=== PATIENT | female | born 1995 | race Caucasian/White ===

== ENCOUNTER 2025-05-10 19:29 | Emergency (ER) | payer OTHER, SELFPAY ==
[2025-05-10 19:34] VITALS: BP 131/83; PULSE 102; RESP 14; TEMP 36.6; O2SAT 99
--- OUTSIDE RECORDS SUMMARY | 2025-05-10 19:34 | XMS_ITS | Patient Health Record ---
Author Organization [facility] Address [address] [place] [address] Care Team Providers Care Cover Creaser Name Role Phone Kyawcindy Rosy Primary Care Provider Cam Foreman [phone] Allergies Allergen (clinical drug ingredient) Drug/Non Drug Allergy documented on EMR Reaction Allergy Type Onset Date Status Rocephin Unknown Drug Allergy Active Results Component Value Reference Range Notes 12 Panel Urine Drug Screen Reviewed date:05/23/2024 10:09:36 AM Interpretation: Performing Lab: Notes/Report: THC POS MARILU POS MOP (OPI) neg AMP POS MET POS BAR neg BZO POS MDMA POS MTD neg OXY neg PCP neg BUP POS 12 Panel Urine Drug Screen Reviewed date:05/16/2024 10:53:02 AM Interpretation: Performing Lab: Notes/Report: THC POS MARILU POS MOP (OPI) neg AMP POS MET POS BAR neg BZO POS MDMA POS MTD neg OXY neg PCP neg BUP POS Reason For Referral No Information Medications Medication SIG (Take, Route, Frequency, Duration) Notes Start Date End Date Status Buprenorphine HCl-Naloxone HCl 8-2 MG 1 film under the tongue and allow to dissolve Sublingual three times per day 05/23/2024 Active Immunizations Vaccine Route Administration Date Status Comme nts FLU VAC NO PRSV 4VAL 6 mo+ IM Intramuscular 05/17/2019 Administered pt tolerated we ll. Social History Tobacco Use: Social History Observation Description Date Details (start date - stop date) Current Smoker NA - NA Sex Assigned At : Social History Observation Description Sex Assigned At Female Tobacco Control (Standard) Question Answer Notes Tobacco use: Current smoker Section Notes: Problems Problem Type SNOMED Code ICD Code Onset Dates Problem Status W/U Status Risk Notes Problem Insomnia (386913797) Insomnia (G47.00) Active confirmed Problem Generalized anxiety disorder (15596985) TONI (generalized anxiety disorder) (F41.1) Active confirmed Problem Overweight (510525008) Overweight (BMI 25.0-29.9) (E66.3) Active confirmed Problem Hepatitis C antibody detected (finding) (309000645) Hepatitis C antibody positive in blood (R76.8) Active confirmed Problem Tobacco use (478955331) Tobacco use disorder (F17.200) Active confirmed Problem Opioid dependence (99037230) Opioid use disorder, severe, dependence (F11.20) Active confirmed Problem Opioid use disorder (7027748989) Opioid use disorder (F11.99) Active confirmed Vital Signs Heart Rate 82 /min 05/23/2024 Temperature 98.2 degrees Fahrenheit 05/23/2024 Respiratory Rate 16 /min 05/23/2024 Blood pressure diastolic 76 mm Hg 05/23/2024 Oximetry 98 % 05/23/2024 Height 63 in 05/23/2024 Blood pressure systolic 120 mm Hg 05/23/2024 Weight 149.4 lbs 05/23/2024 BMI 26.46 kg/m2 05/23/2024 Encounters Encounter Location Date Provider Diagnosis [address] [address] 05/16/2024 Jenia Heavens Opioid use disorder F11.99 ; Overweight (BMI 25.0-29.9) E66.3 and Tobacco use disorder F17.[address] [address] 05/23/2024 Jenia Heavens Opioid use disorder F11.99 ; Opioid use disorder F11.99 ; Overweight (BMI 25.0-29.9) E66.3 and Tobacco use disorder F17.200 Assessments Encounter Date Diagnosis (ICD Code) Assessment Notes Treatment Notes Treatment Clinical Notes Section Notes 05/16/2024 Overweight (BMI 25.0-29.9) (ICD-10 - E66.3) 05/16/2024 Opioid use disorder (ICD-10 - F11.99) 05/23/2024 Overweight (BMI 25.0-29.9) (ICD-10 - E66.3) 05/23/2024 Opioid use disorder (ICD-10 - F11.99) 05/23/2024 Opioid use disorder (ICD-10 - F11.99) 05/23/2024 Tobacco use disorder (ICD-10 - F17.200) 05/16/2024 Tobacco use disorder (ICD-10 - F17.200) 05/16/2024 Other Discussed medication side effects, adverse effects, risks, benefits, as well as interactions. Encouraged non-use of opioids. Has naloxone. Recommended participation in recovery groups/counseling services. Agrees to contact office with questions or concerns. 05/23/2024 Other Patient agrees to take medication as prescribed. Discussed medication side effects, adverse effects, risks, benefits, as well as interactions. Encouraged non-use of opioids. Has naloxone. Recommended participation in recovery groups and/or counseling services. May contact office with questions or concerns. Plan Of Treatment No Information Insurance Providers Payer Name Payer Address Payer Phone Subscriber Number Group Number Insured Name Patient Relationship to Insured Coverage Start Date Coverage End Date [employer] [address] [place] [address] [id number] Jason Bowser Self - patient is the insured 1 [facility] Att Claims Department [address] [place] [address] [id number] Jason Bowser Self - patient is the insured 9 0 [employer] [address] [place] [address] [id number] Natali Bowserjimmy Self - patient is the insured 0 0 [employer] [facility] [address] [place] [address] [id number] Jason Bowser Self - patient is the insured 1 Medications Administered Medication Instructions Date of Administration Dosage Notes Vivitrol 06/02/2019 380 mg pt tolerated w ell and nurse instructed pt to massage area over next couple of days and pt voiced understanding. Vivitrol 07/05/2019 380 mg Nuclear Medicine Officer A lkermes. Pt tolerated well. Voiced no questions or concerns at present time. Vivitrol 08/03/2019 380 mg Nuclear Medicine Officer: Alkermes Tolerated well, Instructed to massage site over next couple days to prevent knot. verbalized understanding. Vivitrol 08/31/2019 380 mg Nuclear Medicine Officer A lkermes Pt tolerated procedure well. No questions or concerns voiced. Vivitrol 09/25/2020 380 mg Nuclear Medicine Officer A lkermes. Pt tolerated well. Voiced no questions or concerns at present time. Medical (General) History Medical History History ICD Code Opioid Use Disorder Substance Use Disorder (meth) Surgical History Surgery Date(Month/Year) Denies Hospitalization History Reason Date(Month/Year) Detox 04/2024 Cellulitis
--- OUTSIDE RECORDS SUMMARY | 2025-05-10 19:34 | XMS_ITS | Clinical Summary ---
Author Organization [facility] Address [address], [address] [address] Phone Care Team Providers Care Barbecue Cook Name Role Phone Jose Alejandro Cox MD Primary Care Provider [phone] Stephen Marques MD Unavailable [phone] Allergies Active Allergy Reactions Criticality Noted Date Comments Ceftriaxone Sodium In Dextrose Hives 05/13 Medications mirtazapine (REMERON) 15 MG Tablet Take 15 mg by mouth daily. 5 Active lidocaine (XYLOCAINE) 2 % Gel 3 times daily. 0 5 Active ibuprofen (MOTRIN) 600 MG Tablet Take 600 mg by mouth every 6 hours as needed. 5 Active Etonogestrel (IMPLANON SC) by Subcutaneous route. Active Ondansetron HCl (ZOFRAN PO) Take 1 Tab by mouth as needed. Active lamoTRIgine (LAMICTAL) 25 MG Tablet Take 25 mg by mouth daily. Active polyethylene glycol (GLYCOLAX, MIRALAX) Pack Take 1 Packet by mouth daily. Dissolve in 4-8 oz of liquid. 90 Packet 3 5 Active other 1 Inch by Other route 2 times daily. 100 mL 1 5 Active Active Problems No known active problems Family History Medical History Relation Name Comments Cancer Maternal Grandfather prostat e Emphysema Maternal Grandfather Cancer Maternal Grandmother breast Diabetes Maternal Grandmother Heart Attack Maternal Grandmother Hypertension Maternal Grandmother Stroke Maternal Grandmother Diabetes Paternal Grandfather Relation Name Status Comments Maternal Grandfather Maternal Grandmother Paternal Grandfather Social History Tobacco Use Types Packs/Day Years Used Date Smoking Tobacco: Every Day Cigarettes 0.5 3 Smokeless Tobacco: Never Tobacco Cessation:Ready to Q uit: No; Counseling Given: Yes Alcohol Use Standard Drinks/Week Comments No 0 (1 standard drink = 0.6 oz pur e alcohol) Comments No Sex and Gender Information Value Date Recorded Sex Assigned at Not on file Legal Sex Female 9:58 PM CDT Gender Identity Not on file Sexual Orientation Not on file Last Filed Vital Signs Vital Sign Reading Time Taken Comments Blood Pressure 120/76 05/15/2015 11:05 AM SUPERVISOR MOLD CONSTRUCTION Pulse 84 05/15/2015 11:05 AM SUPERVISOR MOLD CONSTRUCTION Temperature 37.4 C (99.3 F) 05/15/2015 11:05 AM SUPERVISOR MOLD CONSTRUCTION Respiratory Rate - - Oxygen Saturation - - Inhaled Oxygen Concentration - - Weight 53.3 kg (117 lb 6.4 oz) 05/15/2015 11:05 AM SUPERVISOR MOLD CONSTRUCTION Height 162.6 cm (5' 4) 05/15/2015 11:05 AM SUPERVISOR MOLD CONSTRUCTION Body Mass Index 20.15 05/15/2015 11:05 AM SUPERVISOR MOLD CONSTRUCTION Plan of Treatment Health Maintenance Due Date Last Done Comments Hepatitis C Virus (HCV) Screening 1996 TdaP Immunization 1996 Hepatitis B Immunization (1 of 3 - 19+ 3-dose series) 01/10/2015 Human Papillomavirus (HPV) Immunization (1 - 3-dose SCDM series) 01/10/2023 Influenza Immunization (#1) 2025 SARS-COV-2 Immunization ( - 2023- season) 2025 Respiratory Syncytial Virus (RSV) Immunization (Adult) (1 - 1-dose 75+ series) 01/10/2071 Meningococcal Immunization (ACWY) Aged Out No longer eligible based on patient's age to complete this topic Pneumococcal Immunization Combined Aged Out No longer eligible based on patient's age to complete this topic Rotavirus Immunization Aged Out No lo nger eligible based on patient's age to complete this topic Insurance MEDICAID [employer] Care Teams Barbecue Cook Relationship Specialty Start Date End Date Jose Alejandro Cox MD [address] [place] [address] PCP - General Pediatrics 05/15/15 Stephen Marques MD [address] [place] [address] General Surgery 05/30/15
--- OUTSIDE RECORDS SUMMARY | 2025-05-10 19:34 | XMS_ITS | Encounter Summary ---
Author Organization [facility] Address [address] [place] [address] Care Team Providers Care Tubing Assembler Name Role Phone Jose Alejandro Cox MD Primary Care Provider [phone] Encounter Details Date Type Department Care Team (Late st Contact Info) Description 08/04/2013 Telephone [facility]aternal [facility] Care [address] [place] [address] Laureen Lagunas, [facility] [place] [address] [place] [phone] Social History Tobacco Use Types Packs/Day Years Used Date Smoking Tobacco: Every Day Cigarettes Alcohol Use Standard Drinks/Week Comments No 0 (1 standard drink = 0.6 oz pur e alcohol) Comments Yes Sex and Gender Information Value Date Recorded Sex Assigned at Not on file Legal Sex Female 6:57 AM ASSISTANT PROFESSOR OF HISTORY Gender Identity Not on file Sexual Orientation Not on file documented as of this encounter Plan of Treatment Not on file documented as of this encounter Visit Diagnoses Not on filedocumented in this encounter Care Teams Tubing Assembler Relationship Specialty Start Date End Date Jose Alejandro Cox MD [address] [address] PCP - General Pediatrics 06/27/14 documented as of this encounter
--- NOTE | 2025-05-10 19:42 | ED.EAR ---
HPI - Ear Problem General Chief complaint: Ear Stated complaint: Ear infection Time Seen by Provider: 05/10/25 19:42 Source: patient, RN notes reviewed and old records reviewed Mode of arrival: ambulatory Limitations: no limitations History of Present Illness HPI Narrative: 30-year-old female who presents to [facility] care with complaints of pain to her left ear for the past 2 weeks. Patient has recently been on an antibiotic for a bad tooth and an ear infection. Patient reports that tooth is better but the ear is still painful. Patient reports no known fevers, chills or sweats adis any noted drainage from her left ear. MD Complaint: ear pain Location: left ear Severity: moderate Discharge from ear: Reports no Treatment prior to arrival: other (recently completed) Related Data Allergies Allergy/AdvReac Type Severity Reaction Status Date / Time ceftriaxone (From Rocephin) Allergy Intermediate Hives Verified 05/10/25 19:36 Review of Systems Review of Systems: CONSTITUTIONAL: Denies malaise, chills, sweats, or fever. EYES: Denies visual changes, redness, or discharge. ENT: Reports rhinorrhea, congestion,no sinus pain,+ left otalgia and no sore throat. CARDIOVASCULAR: Denies chest pain, palpitations, or edema. RESPIRATORY: Reports no cough.? Denies dyspnea. GASTROINTESTINAL: Denies abdominal pain, nausea, vomiting, diarrhea SKIN: Denies rash or itching. MUSCULOSKELETAL: Denies myalgia. NEUROLOGIC: Denies headache. All systems reviewed & are unremarkable except as noted in HPI and below PMFSH Past Medical History Medical History (Updated 05/11/25 @ 16:35 by Elsa Grewal APRN) Urinary tract infection History of dental problems Social History Social History (Updated 05/11/25 @ 16:29 by Elsa Grewal APRN) Gender identity (if verbalized by the patient): Female Comments At time of signature, agree with nursing past medical, surgical, social and family history. There is no relevant family history pertinent to the presenting complaint Exam Narrative: GENERAL: Well-appearing, well-nourished, and in no acute distress. HEAD: Normocephalic EYES: PERRLA, conjunctivae clear ENT: Nares clear, turbinates edematous and erythematous, clear discharge. Mucous membranes moist.Left TM red and bulging with excoriation of left ear canal noted, Right TM pearly mike with dull light reflex ; no tragal tenderness. Oropharynx erythematous without lesions. Tonsils not enlarged and without exudate, no drooling, no hoarseness, no trismus, uvula midline. NECK: Supple. No lymphadenopathy CHEST: Clear to auscultation, breath sounds equal. No wheezing, rhonchi, rales, or stridor. No respiratory distress, speaks in full sentences. no acute cough noted SAO2 99% on room air HEART: Regular rate and rhythm. No murmur heard. SKIN: Warm, dry, no rash. NEURO: Alert and oriented x3. PSYCH: Normal mood and affect Course Course Emergency Course: Patient is aware of diagnosis, understands and agrees to treatment plan.? Anticipatory guidance given.? Patient agrees to follow-up as directed and is aware of reasons to seek care at the emergency department. Portions of this record may have been created with voice recognition software Level of Care: Express Care Visit Vital Signs Vital signs: Vital Signs Temperature 36.6 C 05/10/25 19:34 Pulse Rate 102 H 05/10/25 19:34 Respiratory Rate 14 05/10/25 19:34 Blood Pressure 131/83 05/10/25 19:34 Pulse Oximetry 99 05/10/25 19:34 Oxygen Delivery Room Air 05/10/25 19:34 Temperature 36.6 C 05/10/25 19:34 Pulse Rate 102 H 05/10/25 19:34 Respiratory Rate 14 05/10/25 19:34 Blood Pressure 131/83 05/10/25 19:34 Pulse Oximetry 99 05/10/25 19:34 Oxygen Delivery Room Air 05/10/25 19:34 Reviewed Medical Decision Making Differential Diagnosis Differential Diagnosis: otitis media, otitis externa, URI, viral infection Medical Records Medical records reviewed: Yes I reviewed the external patient's medical records. Vital Signs Vital Signs: Vital Signs Temperature 36.6 C 05/10/25 19:34 Pulse Rate 102 H 05/10/25 19:34 Respiratory Rate 14 05/10/25 19:34 Blood Pressure 131/83 05/10/25 19:34 Pulse Oximetry 99 05/10/25 19:34 Oxygen Delivery Room Air 05/10/25 19:34 Temperature 36.6 C 05/10/25 19:34 Pulse Rate 102 H 05/10/25 19:34 Respiratory Rate 14 05/10/25 19:34 Blood Pressure 131/83 05/10/25 19:34 Pulse Oximetry 99 05/10/25 19:34 Oxygen Delivery Room Air 05/10/25 19:34 reviewed Critical Care Time Critical Care Time Critical Care Time: No Discharge Plan Discharge Clinical Impression: Otitis externa Qualifiers: Otitis externa type: diffuse Chronicity: acute Laterality: left Qualified Code(s): H60.312 - Diffuse otitis externa, left ear Otitis media Qualifiers: Otitis media type: serous Chronicity: acute Laterality: left Recurrence: non-recurrent Qualified Code(s): H65.02 - Acute serous otitis media, left ear Patient Disposition: Home Condition: Stable Instructions: Antibiotic Form Additional Instructions: Increase fluids especially juices and water Anvz-aql-jgjyuet cough and cold medicine of your choice for your symptoms Zyrtec Claritin or Macrina daily Tylenol or ibuprofen for any fever pain for package instructions heat to the face 20-30 minutes 4-6 times a day for pain Salt water gargles, throat lozenges or throat sprays as desired Antibiotic as directed--finished the medication antibiotic ear drops to left ear as ordered If your symptoms persist, change or worsen significantly before you can contact your personal physician then please, without delay, go to the emergency department for further evaluation. Follow-up with PCP in 7-10 days or sooner if needed Follow up with PCP soon in regards to your blood pressure which is elevated above threshold for referral. Blood pressure above 120/80 may indicate pre-hypertension. 131/83 Patient Language: Serbian Prescriptions: New cefdinir 300 mg capsule 300 mg PO Q12H Qty: 20 0RF ofloxacin 0.3 % drops 5 drp EACH EAR BID 7 Days Qty: 10 0RF Rx Instructions: left ear Follow-up/Referrals: PHYSICIAN,TOURING PRODUCTION MANAGER [Primary Care Provider, Internal Medicine] Time of Disposition: 19:55 Quality Alva Coma Scale Eyes: Open Verbal: Oriented and Alert Motor: Follows Commands Kermit Coma Total Score: 15
== END 2025-05-10 20:04 | disposition home or self-care (01) ==
PROVIDERS: Emergency Provider Registered Nurse
DX: H60.312 Diffuse otitis externa, left ear (principal); H65.02 Acute serous otitis media, left ear
CPT/HCPCS: 99203; G0463